=== PATIENT | female | born 1990 | race Caucasian/White ===

== ENCOUNTER → 2016-10-15 | Outpatient (REF) | LOC: WSOH 15:30 | DX: Z02.89 Encounter for other administrative examinations (principal) ==

== ENCOUNTER → 2019-07-26 | Outpatient (CLI) | payer OTHER | LOC: MC.RAD 13:49 | DX: N63.24 Unspecified lump in the left breast, lower inner quadrant (principal) ==

== ENCOUNTER → 2019-08-30 | Outpatient (CLI) | payer OTHER | LOC: MC.RAD 10:30 | DX: N63.24 Unspecified lump in the left breast, lower inner quadrant (principal); D24.2 Benign neoplasm of left breast ==